=== PATIENT | male | born 1980 | race Caucasian/White ===

== ENCOUNTER 2019-07-16 17:45 | Emergency (ER) ==
[~2019-07-16] VITALS: Ht 170.2 cm; Wt 72.0 kg
[2019-07-16 17:56] VITALS: BP 140/65
--- NOTE | 2019-07-16 18:21 | NUR ---
NO ANSWER FROM [facility]
[2019-07-16] MEDS ORDERED: ACETAMINOPHEN 500 MG TABLET PO ONE (19:00)
[2019-07-16] MEDS ORDERED: IBUPROFEN 600 MG TABLET PO ONE (19:00)
--- NOTE | 2019-07-16 19:10 | NUR ---
Report received from KELY Colvin; this RN to assume care.
[2019-07-16] MEDS ORDERED: IBUPROFEN 600 MG TABLET ONE (19:18)
[2019-07-16] MEDS ORDERED: ACETAMINOPHEN 500 MG TABLET ONE (19:18)
== END 2019-07-16 19:41 | disposition home or self-care (01) ==
LOC: ED 19:00
DX: R51 Headache (principal); Z72.9 Problem related to lifestyle, unspecified
CPT/HCPCS: 99283